=== PATIENT | female | born 1985 | race Caucasian/White ===

== ENCOUNTER → 2017-11-04 20:16 | Outpatient (CLI) | payer MEDICAID, SELFPAY ==
[2017-11-04 22:36] LABS: Chlamydia Trachomatis by PCR Negative (Negative); Neisserai gonorrhoeae by PCR Negative (Negative); Probe Check PASS; Sample Adequacy Control PASS; Specimen Processing Control PASS
[2017-11-08 14:23] LABS: HPV APTIMA, High Risk Positive (Negative)
== END ==
PROVIDERS: Visit Provider Obstetrics & Gynecology
DX: Z12.4 Encounter for screening for malignant neoplasm of cervix (principal); Z11.3 Encounter for screening for infections with a predominantly sexual mode of transmission
CPT/HCPCS: 87491; 87591; 88175; G0145

== ENCOUNTER → 2017-11-14 10:13 | Outpatient (CLI) | payer MEDICAID, SELFPAY ==
[2017-11-14 12:28] LABS: Color, Urine Yellow (Yellow); Glucose, Dipstick Normal (Normal); Ketone-Dipstick Negative (Negative); Leukocyte Esterase-Dipstick 500 /ul (Negative); Nitrite-Dipstick Negative (Negative); Occult Blood-Urine 25 /ul (Negative); Protein-Dipstick Negative (Negative); Specific Gravity, Urine 1.015 (1.002-1.030); Urine Bilirubin Dipstick Negative (Negative); Urine Clarity Clear (Clear); Urine Urobilinogen Normal (Normal); Urine pH 6.5 (5.0 - 8.0)
[2017-11-14 12:37] LABS: Absolute Lymphocyte Count 1.82 X10^3/ul (0.83-4.51); Absolute Neutrophil Count 5.4 X10^3/uL (2.0-7.7); Basophil# 0.02 X10^3/uL; Basophil% 0.3 % (0-1); Eosinophil# 0.09 X10^3/uL; Eosinophils% 1.2 % (0-5); Hematocrit 35.5 % (37-47); Hemoglobin 12.1 g/dl (12.0-15.0); Lymphocyte # 1.82 X10^3/ul (4.0); Lymphocyte % 23.4 % (19-41); Mean Corp Hgb Conc 34.1 g/gl (32-36); Mean Corpuscular Hgb 31.7 pg (27.0-32.0); Mean Corpuscular Volume 92.9 fL (81-99); Monocyte# 0.44 X10^3/uL; Monocyte% 5.7 % (0-10); Neutrophil # 5.39 X10^3/uL (2.7-7.7); Neutrophil % 69.1 % (47-70); Platelet Count 203 K/mm3 (150-450); RBC Distribution Width CV 13.4 % (11.6-14.6); RBC Distribution Width SD 44.6 fl (35.1-43.9); Red Blood Count 3.82 M/mm3 (4.2-5.4); White Blood Count 7.8 K/mm3 (4.4-11.0)
[2017-11-14 12:41] LABS: POSITIVE COUNT NO; POSITIVE DIFFERENTIAL NO; POSITIVE MORPHOLOGY NO
[2017-11-14 12:49] LABS: Thyroid Stim Hormone (TSH) 1.29 uIU/mL (0.358-3.74)
[2017-11-14 12:51] LABS: Amphetamine Urine VISTA NEGATIVE (<1000 ng/mL); Barbiturate Urine VISTA NEGATIVE (< 200 ng/mL); Benzodiazepine Urine VISTA NEGATIVE (< 200 ng/mL); Cocaine Urine VISTA NEGATIVE (< 300 ng/mL); Ecstacy Urine VISTA NEGATIVE (< 500 ng/mL); Methadone Urine VISTA NEGATIVE (< 300 ng/mL); PCP Urine VISTA NEGATIVE (< 25 ng/mL); THC Urine VISTA NEGATIVE (< 50 ng/mL); Vista UDS pH Range 7
[2017-11-15 02:59] LABS: Prenatal RPR NONREACTIVE (NONREACTIVE)
[2017-11-15 10:26] LABS: HIV - WCH Non-Reactive (Nonreactive); Rubella IgG 109.7 IU/mL
[2017-11-15 12:31] LABS: HEPATITIS B SURFACE AG Negative (Negative); Hep C Antibodies <0.1 s/co ratio (0.0-0.9)
== END ==
PROVIDERS: Visit Provider Obstetrics & Gynecology
DX: Z34.82 Encounter for supervision of other normal pregnancy, second trimester (principal)
CPT/HCPCS: 36415; 80307; 81002; 84443; 85025; 86703; 86762; 86803; 87340

== ENCOUNTER → 2018-03-25 09:15 | Outpatient (CLI) | payer MEDICAID, SELFPAY ==
[2018-03-26 12:29] LABS: Group B Strep DNA By PCR Negative (Negative); Internal Control PASS; Probe Check PASS; Specimen Processing Control PASS
== END ==
PROVIDERS: Visit Provider Obstetrics & Gynecology
DX: Z36.85 Encounter for antenatal screening for Streptococcus B (principal)
CPT/HCPCS: 87081; 87653

== ENCOUNTER 2018-04-24 07:00 | Inpatient (IN) | payer MEDICAID, SELFPAY ==
[2018-04-24 07:39] VITALS: BMI 28.1
[2018-04-24] MEDS: Lactated Ringers 1,000 ML 50 ML IV ×2 (07:50→12:49)
[2018-04-24 08:00] LABS: Hematocrit 34.5 % (37-47); Hemoglobin 11.6 g/dl (12.0-15.0); Mean Corp Hgb Conc 33.6 g/gl (32-36); Mean Corpuscular Hgb 30.6 pg (27.0-32.0); Platelet Count 165 K/mm3 (150-450); RBC Distribution Width CV 13.4 % (11.6-14.6); RBC Distribution Width SD 44.1 fl (35.1-43.9); Red Blood Count 3.79 M/mm3 (4.2-5.4); White Blood Count 7.2 K/mm3 (4.4-11.0)
[2018-04-24 08:01] LABS: Scan Indicated on CBC? Y/N NO
[2018-04-24] MEDS: Oxytocin 30 units/NS 500 ml 30 UNITS/500 ML IV.SOLN IV (09:39)
[2018-04-24] MEDS: Oxytocin 30 units/NS 500 ml 30 UNITS/500 ML IV.SOLN 334 UNITS IV (15:05)
--- NOTE | 2018-04-24 15:17 | PCM.OB.VAG ---
Vaginal Delivery Maternal Presentation: Elective Induction Amniotic Membrane Rupture Type: Artificial Amniotic Fluid Description: Clear Final ROSSANA: 04/24/18 Final ROSSANA Source: US <20 weeks Gestational age: 40 Weeks and 0 Days Date of Procedure: 04/24/18 Pre-Operative Diagnosis: IUP Post-Operative Diagnosis: IUP Surgery/ Procedure Performed: Spontaneous Vaginal Delivery Description of Procedure: Spontaneous vaginal delivery of a viable female infant with Apgars of 8/9 from an occiput anterior presentation with clear amniotic fluid and normal three-vessel placenta. No episiotomy or lacerations. Sponge counts okay. Delivery physician: Abelardo Tobar MD. Presentation: Vertex Placental Delivery Description: Spontaneous Placenta Disposition: [facility] Cord Vessel Description: 3 Vessels Cord Gases drawn per routine: ABG Cord Entanglement: None Estimated Blood Loss: 250 cc Infant A gender: Female (1 minute): 8 (5 minute): 9 Episiotomy Description: None Laceration: None Medications given after delivery: IV Pitocin Complications: None
--- NOTE | 2018-04-24 15:19 | PCM.DCVAG ---
Discharge Diet: No Restrictions Discharge Activity: May Shower, May Take a Tub Bath May resume sexual activity in: 4-6 weeks Additional Activity Instructions:: Nothing in the vagina for 4-6 weeks. You may return to work/school in 6 weeks. Call your doctor if you observe: Fever of 101 or Higher, Inability to urinate, Inability to have a bowel movement, Using more than one pad per hour Additional Instructions: If you experience any of the following, contact your healthcare provider. Bleeding that soaks a pad every hour for 2 hours Unrelieved incision or abdominal pain Swelling, redness, discharge or bleeding from your incision or episiotomy site Your incision begins to separate Problems urinating (including inability to urinate or burning while urinating). Visual changes Severe headache Flu-like symptoms Pain or redness in one of both of your breasts Pain, warmth, tenderness or swelling in your legs, especially the calf area Frequent nausea and vomiting Symptoms of depression or anxiety If you experience any of the following, call 911 or go to the nearest Emergency Room. Chest pain Problems breathing Seizure activity Partial or complete paralysis of a body part, slurred speech, weakness or drooping of the face, or a sudden inability to walk or hold your balance Allergies/Adverse Reactions: Allergies No Known Allergies Allergy (Verified 04/24/18 08:11) Medications to take at Discharge Vits [Prenatabs FA] 1 tablet PO DAILY 07/14/15 Acyclovir [Zovirax] 400 mg PO BID 04/24/18 Sertraline HCl [Zoloft] 50 mg PO DAILY 04/24/18 Please Follow Up With: Abelardo Tobar MD - [phone] When: Call to make an appointment with your doctor in 6 weeks. Primary Care Physician: Care Physician,No Primary [Primary Care Provider] - Test Results: Test results from this visit will be discussed in further detail at your follow-up appointment, if applicable.
[2018-04-24] MEDS: Oxytocin 30 units/NS 500 ml 30 UNITS/500 ML IV.SOLN 167 UNITS IV (15:35)
[2018-04-24 19:35] VITALS: BP 102/38; PULSE 80; RESP 18; TEMP 37.1
[2018-04-24] MEDS: Acyclovir 200 MG Capsule 400 MG PO (22:11)
[2018-04-24] MEDS: oxyCODONE 5 MG Tablet PO (22:14)
[2018-04-25 00:46] VITALS: BP 100/49; PULSE 70; RESP 16; TEMP 37; O2SAT 98
[2018-04-25] MEDS: Ibuprofen 600 MG Tablet PO ×2 (03:15→10:40)
[2018-04-25 04:45] VITALS: BP 93/45; PULSE 67; RESP 16; TEMP 36.8; O2SAT 95
--- NOTE | 2018-04-25 08:39 | PCM.PN.OB ---
Subjective: Patient without complaints. Breast-feeding going well. Minimal vaginal bleeding. Wants to go home later today if baby is able to go. - Physical Exam Vital Signs Temp Pulse Resp BP Pulse Ox 98.2 F 67 16 93/45 L 95 04/25/18 04:45 04/25/18 04:45 04/25/18 04:45 04/25/18 04:45 04/25/18 04:45 Oxygen Delivery Method Room Air Weight: 164 lb 3.91 oz Body Mass Index (BMI) 28.1 Intake and Output for Last 24 Hours 04/23/18 04/24/18 04/25/18 23:59 23:59 23:59 Intake Total 2276 / 2276 Output Total 1100 / 1100 Balance 1176 / 1176 Laboratory Tests Past 24 Hrs 04/24/18 07:50 Blood Type B POSITIVE Antibody Screen NEGATIVE Medical Necessity - Tobacco Use Smoking Status: Light Smoker (<10/day) Assessment/Plan Doing well day #1. Will release to home later today if baby is able to be released. Home-going instructions given.
[2018-04-25 09:45] VITALS: BP 107/52; PULSE 59; RESP 18; TEMP 36.7; O2SAT 98
[2018-04-25] MEDS: Acyclovir 200 MG Capsule 400 MG PO (10:34)
[2018-04-25] MEDS: Sertraline 50 MG Tablet PO (10:35)
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
[2018-04-25 14:00] VITALS: BP 125/61; PULSE 51; RESP 18; TEMP 36.6; O2SAT 97
--- NOTE | 2018-04-25 14:25 | CASEMGMT ---
Social Work Note Labor and Delivery Unit Called [facility] ([facility]). Spoke with Ashley at [facility], . Reported the of Yadiel Alexander to mother baby (MOB) Talita Sosa and reported father of baby (FOB) Hardik Alexander. Referenced reported open case for at least one other child in the home. Brief maternal and infant histories provided as well as FOB history, per FOB's report today. Let Ashley know that MOB and baby are slated for discharge home today. Ashley will let the current worker know of baby's and discharge time frame. No other services requested or indicated. Plan: MOB and baby to home. Refer to social work documentation earlier this date for details of social work intervention. Still need to make [facility] referral. -OLIVIA Ramsay, SCIENCE TECHNICIAN
[2018-04-25] MEDS: Senna/Docusate Sodium 1 Tablet PO (15:19)
[2018-04-25 17:29] VITALS: BP 122/80; PULSE 54; RESP 18; TEMP 36.9
--- NOTE | 2018-04-28 15:21 | CASEMGMT ---
Social Work Note Labor and Delivery Unit [facility] referral completed via the [facility]'s secure web based referral system. No other services requested or indicated. -OLIVIA Ramsay, SUMMER CAMP COUNSELOR
== END 2018-04-25 17:55 | disposition home or self-care (01) | DRG 372 ==
PROVIDERS: Admitting Provider Obstetrics & Gynecology; Visit Provider Obstetrics & Gynecology
DX: O99.344 Other mental disorders complicating childbirth (principal); O98.32 Other infections with a predominantly sexual mode of transmission complicating childbirth; O48.0 Post-term pregnancy; Z3A.40 40 weeks gestation of pregnancy; O99.834 Other infection carrier state complicating childbirth; A60.00 Herpesviral infection of urogenital system, unspecified; F41.9 Anxiety disorder, unspecified; F32.9 Major depressive disorder, single episode, unspecified; O99.334 Smoking (tobacco) complicating childbirth; Z37.0 Single live birth
CPT/HCPCS: 59025; 59050; 85027; 86850; 86900; 99218; J7120; G0378

== ENCOUNTER → 2018-06-03 11:30 | Outpatient (CLI) | payer MEDICAID, SELFPAY ==
[2018-06-07 14:02] LABS: HPV APTIMA, High Risk Negative (Negative)
== END ==
PROVIDERS: Visit Provider Obstetrics & Gynecology
DX: Z12.4 Encounter for screening for malignant neoplasm of cervix (principal)
CPT/HCPCS: 88175; G0145

== ENCOUNTER 2018-07-07 11:07 | Day surgery (SDC) | payer MEDICAID, SELFPAY ==
[2018-07-02 18:05] LABS: Hematocrit 39.7 % (37-47); Hemoglobin 12.5 g/dl (12.0-15.0); Mean Corp Hgb Conc 31.5 g/gl (32-36); Mean Corpuscular Hgb 28.5 pg (27.0-32.0); Mean Corpuscular Volume 90.6 fL (81-99); Mean Platelet Vol. 10.4 fl (6.2-12.0); Platelet Count 240 K/mm3 (150-450); RBC Distribution Width CV 13.7 % (11.6-14.6); RBC Distribution Width SD 45.5 fl (35.1-43.9); Red Blood Count 4.38 M/mm3 (4.2-5.4)
[2018-07-02 18:06] LABS: Scan Indicated on CBC? Y/N NO
[2018-07-02 18:21] LABS: Partial Thromboplast Time 30.9 Seconds (24.1-36.2)
[2018-07-02 19:12] LABS: Pregnancy, Serum, hCG Quali. NEGATIVE Negative (0-9 Nonpreg)
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
[2018-07-07 12:23] LABS: Internal QC Validated? YES +Cl - CLEAR BKGD; Pregnancy, Urine Negative Negative
[2018-07-07 12:28] VITALS: BP 133/51; PULSE 66; RESP 16; TEMP 36.9; O2SAT 100; BMI 25.1
--- NOTE | 2018-07-07 14:00 | FALS_PTH ---
PATIENT: MARIANNE BERMUDEZ [place] [facility] U#:[id number] AGE/SX: 33/F ROOM: RE07/07/[address]: Dr. Abelardo Tobar MD : [id number] BED: DIS: 07/07/2018 SPEC #: [id number] RECD: 07/07/18 16:02 STATUS: JESSICA HAYLEE #: [id number] BAKARI: 07/07/18 14:[address]: Abelardo Tobar DEPT: SURGICAL PATHOLOGY RECD BY: Gonzalo Light ENTERED: 07/08/18 09:21 SP TYPE: FALL TUBES OTHR DR: Elisa Primary Care Phys Tissues: Fallopian tube Procedures: Surgery Specimen Level IV HEADER OPERATION: Laparoscopic bilateral tubal occlusion with Filshie clips PRE-OP DIAGNOSIS: Desire for sterilization TISSUE SUBMITTED: Bilateral fallopian tubes MICROSCOPIC DIAGNOSIS Bilateral fallopian tubes, bilateral tubal occlusion: Bilateral fallopian tubes including fimbrial ends with focal moderate chronic inflammation. See comment. SJ:aysha 07/09/18 COMMENT Inflammation is more marked in the fimbrial ends of the fallopian tubes. Chelsea clip is not identified in the submitted specimen. MICROSCOPIC DESCRIPTION Slides are reviewed. GROSS DESCRIPTION Received is one container labeled with the patient's name and designated bilateral fallopian tubes. The specimen consists of multiple tubular pieces of ramires soft tissue. Two of the pieces also show the fimbrial ends. One of the fallopian tube pieces with fimbrial end measures 2 cm in length and 0.6 cm in diameter. The second piece with fimbrial end measures 2 cm in length and 0.9 cm in diameter. The smaller three pieces measure 1.5 to 2 cm in length and 0.5 cm in diameter. Sections do not reveal any mass lesion. Java J2Ee Application Developer sections are submitted in two cassettes. One fallopian tube containing fimbrial end is in cassette 1 and second fallopian tube with fimbrial end is present in cassette 2. / MAXX:aysha 07/08/18 TC:3 [facility]: [id number] x2
--- NOTE | 2018-07-07 15:04 | OP.PCM_ITS ---
Operative Report Date of Procedure: 07/07/18 Surgeon: Abelardo Tobar MD, FACOG Anesthesia: Tan Walker CRNA Type of Anesthesia: General Endotracheal Pre-Op Diagnosis: Desires Permanent Sterilization Postoperative Diagnosis: Desires Permanent sterilization Procedure: Bilateral Tubal Occlusion With Filshie Clips and Partial Distal Salp ingectomy Findings: 8 cm uterus with normal appearing fallopian tubes and ovaries; some scarring into the peritoneum suggestive of endometriosis which was noted in the cul-de-sac and throughout the peritoneal cavity. Indications: This is a 33 year old patient who has the above diagnosis. She has considered sterilization for quite some time. She is aware of the permanent nature of the procedure, the failure rate of 1-2%, and the availability of other nonpermanent control options. All questions were answered to consider the patient well-informed. Procedure: The patient was taken to the operating room where after induction of general anesthesia, she was placed in the dorsolithotomy position and prepped and draped in the usual sterile fashion. The bladder was drained of approxima tely 50 cc of clear yellow urine with a catheter. Attention was turned toward the laparoscopic portion of the procedure. Approximately 18 cc of half percent ropivacaine was injected subumbilically, suprapubically and midway between. A 5 mm bladeless trocar was placed subumbilically and intraperitoneal placement confirmed. After CO2 insufflation was complete, a 7/8 mm bladeless trocar was introduced suprapubically. The above findings were noted. An alligator grasper port was then placed midway between these 2 ports for tubal manipulation. Each fallopian tube was identified to its fimbriated end and an Enseal device was used to divide the mesosalpinx leaving approximately 1 cm stump of fallopian tube on each side. Filshie clips were placed on the stump of each fallopian tube. The peritoneal cavity and upper abdomen were examined and noted to be normal. Photographs were taken. Laparoscopic instruments with as much CO2 gas as possible were removed and incisions were closed with interrupted 4-0 Monocryl suture. Steri-Strips placed across the incision. Patient tolerated procedure well was taken to recovery room in satisfactory condition sponge instrument and needle counts were all reportedly correct. Estimated blood loss for the case was minimal. There were no apparent complications of the surgery. Specimens to pathology was bilateral distal tubes
--- NOTE | 2018-07-07 15:06 | DCINST_ITS ---
Discharge Diet: No Restrictions - Increase fluid intake for the next 48 hours. Discharge Activity: Return to Normal Activity, May Drive - when you are no longer taking pain/narcotic medicines., May Shower, May Take a Tub Bath May resume sexual activity in: 3 weeks Additional Activity Instructions:: Ambulate often the next week after surgery. Nothing in the vagina for 5 days. Call your doctor if your incision/area has: Continuous Slow Oozing, Sudden Increased Bleeding, Increased Pain/ Swelling, Increased Redness, Foul Smelling Discharge Call your doctor if you observe: Fever of 101 or Higher, Inability to urinate, Inability to have a bowel movement, Using more than one pad per hour Allergies/Adverse Reactions: Allergies No Known Allergies Allergy (Verified 07/07/18 12:25) Medications to take at Discharge Acyclovir [Zovirax] 400 mg PO BID PRN 04/24/18 Sertraline HCl [Zoloft] 50 mg PO DAILY PRN 04/24/18 Oxycodone [Oxyir] 5 mg PO Q6H PRN PRN 7 Days #10 tab 07/07/18 The following prescriptions were given: Oxycodone [Oxyir] 5 mg PO Q6H PRN PRN 7 Days #10 tab PRN Reason: Severe Pain (6-06/11) Primary Care Physician: Care Physician,No Primary [Primary Care Provider] - Test Results: Test results from this visit will be discussed in further detail at your follow- up appointment, if applicable. Please Follow Up With: Abelardo Tobar MD - [phone] When: 2-3 weeks.
[2018-07-07] MEDS: Ropivacaine 0.5% 30 ML Vial (15:52)
[2018-07-07 16:06] VITALS: BP 129/84; BP 133/51; PULSE 46; RESP 16; TEMP 36.4; O2SAT 95
[2018-07-07 16:15] VITALS: BP 133/51; BP 138/70; PULSE 50; RESP 16; O2SAT 97
[2018-07-07 16:31] VITALS: BP 124/69; BP 133/51; PULSE 49; RESP 16; O2SAT 96
[2018-07-07 16:45] VITALS: BP 128/81; BP 133/51; PULSE 61; RESP 16; TEMP 36.4; O2SAT 94
[2018-07-07] MEDS: oxyCODONE 5 MG Tablet PO (17:46)
[2018-07-07 18:46] VITALS: BP 116/57; BP 133/51; PULSE 56; RESP 14; TEMP 37.2; O2SAT 97
== END 2018-07-07 18:49 | disposition home or self-care (01) ==
LOC: SDC 11:09 → AC 12:45
PROVIDERS: Anesthesiology; Referring Provider Obstetrics & Gynecology; Visit Provider Obstetrics & Gynecology
PROC: (CPT 58671; principal; 2018-07-07 13:45)
DX: N70.91 Salpingitis, unspecified (principal); Z30.2 Encounter for sterilization; F32.9 Major depressive disorder, single episode, unspecified; F41.9 Anxiety disorder, unspecified; F17.200 Nicotine dependence, unspecified, uncomplicated; Z79.899 Other long term (current) drug therapy
CPT/HCPCS: 00851; 58661; 58671; 36415; 81025; 84703; 85027; 85610; 85730; 86850; 86900; 88302; 88305; J7120; C1760; J0330; J2405

== ENCOUNTER 2022-11-22 12:11 | Day surgery (SDC) | payer MEDICAID, SELFPAY ==
[2022-11-14 11:31] LABS: Hematocrit 41.3 % (37-47); Hemoglobin 13.5 g/dL (12.0-15.0); Mean Corp Hgb Conc 32.7 g/dL (32-36); Mean Corpuscular Hgb 31.1 pg (27.0-32.0); Mean Corpuscular Volume 95.2 fL (81-99); Mean Platelet Vol. 10.2 fl (6.2-12.0); Platelet Count 214 K/mm3 (150-450); RBC Distribution Width CV 12.5 % (11.6-14.6); RBC Distribution Width SD 43.7 fl (35.1-43.9); Red Blood Count 4.34 M/mm3 (4.2-5.4)
[2022-11-22] VITALS (8 sets, daily range): BP systolic 90–102; BP diastolic 44–68; PULSE 53–89; RESP 16–18; TEMP 36.3–37.1; O2SAT 93–100; BMI 25.3
--- NOTE | 2022-11-22 12:41 | HP.PCM.OB_ITS ---
History and Physical Date of Admission: 11/22/22 HPI: 37-year-old female with history of moderate cervical dysplasia plan for loop electrical excisional procedure. Denies headache or vision changes, chest pain or shortness of breath, nausea or vomiting, diarrhea constipation, fevers or chills. BREAKER HAND history: Medical history: 1.? Moderate cervical dysplasia 2. HSV Surgical history: 1.? Tubal ligation 2. [place] tooth extraction No complications with anesthesia Medications: 1.? Acyclovir 2.? Ascorbic acid 3.? Vitamin D 4. Magnesium 5. Zinc Allergies: No known drug allergies Social history: Reports tobacco use. Denies alcohol, drug use Family history: Noncontributory Physical exam: Vitals: Blood pressure 102/68, heart rate 73, respiratory rate 18, temp 97.4 ?F, oxygen saturation 100% on room air General: No acute distress HEENT: Normal cephalic/atraumatic, PERRLA Cardiorespiratory: No increased effort, clear to auscultation bilaterally, regular rate and rhythm Abdomen: Soft, nontender Extremities: No edema Neurologic: Cranial nerves II through XII grossly intact, no focal deficits Musculoskeletal: Strength out of 5 throughout all extremities Assessment/plan: 37-year-old female with history of moderate cervical dysplasia plan for loop electrical excisional procedure. All risk, benefits, alternatives were discussed with the patient.? Risk include but are not limited to: Risk of bleeding to the point of transfusion, infection, injury to surrounding tissue including bowel/bladder potentially requiring prolonged Romero catheter use, VTE, ICU admission.?
[2022-11-22] MEDS: Lactated Ringers 1,000 ML 15 ML IV (12:48)
--- NOTE | 2022-11-22 13:08 | PCM.OPRPT ---
Report of Operation Date of Procedure: 11/22/22 Pre-Operative Diagnosis: Moderate cervical dysplasia Post-Operative Diagnosis: Moderate cervical dysplasia Surgery/Procedure Performed:: Loop electrical excisional procedure Description of Surgical Findings:: Normal-appearing external genitalia. Minimal uterine descensus. Lugol staining of cervix, aside from cervix at the 6 to 8 o'clock position. Cervix somewhat flush with vagina. Type of Anesthesia: MAC Specimen's removed: Anterior cervix, posterior cervix Estimated Blood Loss (mL): 5cc Fluids Replaced: 250cc Description of Procedure: Indication/risk/benefits: 37-year-old female with moderate cervical dysplasia plan for loop electrical excisional procedure. All risk, benefits, alternatives were discussed with the patient.? Risk include but are not limited to: Risk of bleeding to the point of transfusion, infection, injury to surrounding tissue, VTE, ICU admission. Patient aware and consented. Procedure: Patient taken to the operating room and MAC anesthesia induced. Patient placed in the dorsal lithotomy position prepped and draped in the usual sterile fashion. Coated speculum placed in vagina and Lugol's placed along the vagina and cervix. Findings noted above. Large loop used to remove portions of cervix, anterior and posterior. Biopsy bed hemostatic with cautery. Monsel's placed. Coated speculum removed. At the end of procedure all needle, lap, sponge counts were correct. UOP: 25 cc Complications None
--- NOTE | 2022-11-22 13:09 | DCINST_ITS ---
Discharge Instructions Diet Discharge Diet: No restrictions Activity Discharge Activity: Return to Normal Activity and May Shower May resume sexual activity in: 2 weeks Weight Bearing Status: Weight bearing as tolerated Lifting Restrictions: None Dressing / Incision Call your doctor if you observe: Fever of 101 or Higher, Change in Color, Inability to urinate, Using more than 1 pad per hour, Shortness of breath, Dizziness, Swelling in the ankles, Chest pain and Calf discomfort Follow Up Care Please Follow Up With: Cathie Ervin DO When: 1-2 week postoperative visit Test Results: Test results from this visit will be discussed in further detail at your follow- up appointment, if applicable. Discharge Plan Admission Primary Reason for Your Visit: LAURA Attending Provider: Cathie Erivn Primary Care Provider: Marcie Mccormack Discharge Orders/Prescriptions Prescriptions: No Action acyclovir [Zovirax] 400 MG tablet 400 mg PO BID PRN (Reason: HERPES) magnesium 500 mg Tablet 15 mg PO QHS ascorbic acid (vitamin C) [Vitamin C] 500 mg Tablet 500 mg PO DAILY zinc 50 mg Capsule 50 mg PO DAILY cholecalciferol (vitamin D3) [Vitamin D3] 25 mcg (1,000 unit) Tablet 25 mcg PO DAILY Referrals / Follow Up: Marcie Mccormack DO [Primary Care Provider] - Disposition Disposition (needs filled in before D/C Order can be placed): Home, Self Care
--- NOTE | 2022-11-22 14:00 | CONE_PTH ---
PATIENT: MARIANNE BERMUDEZ LOC: [facility] – [place] U#:[id number] AGE/SX: 37/F ROOM: RE11/22/[address]: Dr. Cathie Ervin DO : 1985 BED: DIS: 11/22/2022 SPEC #: [id number] RECD: 11/22/22 16:43 STATUS: JESSICA REJoe #: [id number] BAKARI: 11/22/22 14:[address]: Cathie Ervin DEPT: SURGICAL PATHOLOGY RECD BY: Gonzalo Light ENTERED: 11/23/22 08:15 SP TYPE: Leep Cone JOSÉ LUIS DR: Dr. Marcie Mccormack, Tissues: A - UTERINE CERVIX LEEP B - UTERINE CERVIX LEEP Procedures: Surgery Specimen Level V HEADER OPERATION: LEEP cone PRE-OP DIAGNOSIS: Moderate cervical dysplasia, HSV TISSUE SUBMITTED: A ? Anterior cervix, B ? Posterior cervix MICROSCOPIC DIAGNOSIS A. Anterior cervix, LEEP conization: Chronic inflammation, negative for dysplasia. B. Posterior cervix, LEEP conization: Chronic inflammation, negative for dysplasia. MAXX:aysha 11/26/2022 COMMENT Clinical correlation and appropriate follow up are necessary. MICROSCOPIC DESCRIPTION Slides are reviewed. GROSS DESCRIPTION A - Received in fixative is one container labeled with the patient's name and designated anterior cervix. The specimen consists of a piece of ramires, indurated tissue measuring 2.0 x 1.2 x 0.5 cm. No mucosal lesion is identified. Nonmucosal surface is inked black. The specimen is serially sectioned and submitted entirely in two cassettes. B - Received in fixative is one container labeled with the patient's name and designated posterior cervix. The specimen consists of seven variable sized pieces of ramires, indurated tissue measuring in aggregate 3.0 x 2.0 x 0.3 cm. Nonmucosal surface is inked black. No mucosal lesion is identified. Other pieces are sectioned. The entire specimen is submitted in four cassettes. / MAXX:aysha 11/23/2022 TC:3 CPT: 12506 x2
[2022-11-22] MEDS: FERRIC SUBSULFATE 8 GM SOLN (14:28)
[2022-11-22] MEDS: Iodine/Potassium Iodide 14ML Bottle 1 DRP TOPICAL (14:29)
== END 2022-11-22 15:45 | disposition home or self-care (01) ==
LOC: SDC 12:12 → AC 12:14
PROVIDERS: PCP Family Medicine; Referring Provider Student in an Organized Health Care Education/Training Program; Visit Provider Student in an Organized Health Care Education/Training Program
PROC: 0UBC7ZZ Excision of Cervix, Via Natural or Artificial Opening (ICD-10-PCS; CPT 57522; principal; 2022-11-22 13:45)
DX: N87.1 Moderate cervical dysplasia (principal); F17.200 Nicotine dependence, unspecified, uncomplicated
CPT/HCPCS: 57522; 00940; 36415; 85027; 86850; 86900; 86901; 88307; J7120; J2405